=== PATIENT | female | born 1970 ===

== ENCOUNTER 2016-09-24 09:26 | Emergency (ER) | payer OTHER ==
[2016-09-24 09:35] VITALS: BP 110/48; PULSE 90; RESP 20; TEMP 98.2; O2SAT 97
[2016-09-24 10:47] LABS: RBC URINE 4 /hpf (0-3); URINE BACTERIA RARE (<OCC); URINE BILIRUBIN NEGATIVE (NEGATIVE); URINE BLOOD SMALL (NEGATIVE); URINE COLOR YELLOW (YELLOW); URINE GLUCOSE (UA) NEG (Normal); URINE KETONE TRACE mg/dL (NEGATIVE); URINE LEUKOCYTE ESTERASE NEG Leu/uL (Negative); URINE PROTEIN 30 mg/dL (NEGATIVE); URINE UROBILINOGEN 0.2-1.0 mg/dL (0.2-1.0); WBC URINE 2 /hpf (0-5)
--- NOTE | 2016-09-24 10:50 | ED PDOC ---
HPI: Back Time Seen by Provider: 09/24/16 09:47 Chief Complaint (Nursing): Back Pain Chief Complaint (Provider): Back Pain History Per: Patient History/Exam Limitations: no limitations Onset/Duration Of Symptoms: Days Current Symptoms Are (Timing): Still Present Quality Of Discomfort: "Pain" Severity: Moderate Previous Symptoms: Back Pain Associated Symptoms: None Exacerbating Factor(s): Nothing Additional Complaint(s): Patient is a 46 year old female who presents to ED for left sided back pain with radiation to the left leg for 4 days. Patient notes similar pain in the past, treated in May 2016 with Percocet. Patient denies injury or heavy lifting. Past Medical History Reviewed: Historical Data, Nursing Documentation, Vital Signs Vital Signs: Last Vital Signs Temp 98.2 F 09/24/16 09:33 Pulse 90 09/24/16 09:33 Resp 20 09/24/16 09:33 BP 110/48 L 09/24/16 09:33 Pulse Ox 97 09/24/16 09:33 - Medical History PMH: No Chronic Diseases Denies: Chronic Kidney Disease - Surgical History Surgical History: No Surg Hx - Family History Family History: States: Unknown Family Hx - Living Arrangements Living Arrangements: With Family - Home Medications Home Medications: Ambulatory Orders Medication Instructions Recorded Cyclobenzaprine [Cyclobenzaprine 10 mg PO TID PRN #15 tab 03/06/15 HCl] Naproxen [Naprosyn Tab] 500 mg PO BID PRN #20 tab 03/06/15 Docusate [Colace] 100 mg PO DAILY #15 cap 05/16/16 Methylprednisolone [Medrol Dose 4 mg PO ASDIR #21 mg 05/16/16 Pack (21 tabs)] oxyCODONE/Acetaminophen [Percocet 1 ea PO Q6 PRN #15 tab 05/16/16 5/325 mg Tab] - Allergies Allergies/Adverse Reactions: Allergies Allergy/AdvReac Type Severity Reaction Status Date / Time No Known Allergies Allergy Verified 09/24/16 09:45 Review of Systems ROS Statement: Except As Marked, All Systems Reviewed And Found Negative Respiratory: Negative for: Shortness of Breath Gastrointestinal: Negative for: Nausea, Vomiting Musculoskeletal: Positive for: Back Pain, Leg Pain. Negative for: Neck Pain Neurological: Negative for: Weakness, Numbness Physical Exam - Reviewed Nursing Documentation Reviewed: Yes Vital Signs Reviewed: Yes - Physical Exam Appears: Positive for: Non-toxic, Uncomfortable Skin: Positive for: Normal Color, Warm Eye Exam: Positive for: Normal appearance Neck: Positive for: Normal, Painless ROM Gastrointestinal/Abdominal: Positive for: Normal Exam. Negative for: Tenderness Back: Positive for: Normal Inspection, Other (left buttock tenderness (+) straight leg raise at 45 degree) Extremity: Positive for: Normal ROM Neurologic/Psych: Positive for: Alert, Oriented - ECG O2 Sat by Pulse Oximetry: 97 (RA) Pulse Ox Interpretation: Normal Medical Decision Making Medical Decision Making: Time: 1015 Initial impression: Back pain Initial plan: -- Toradol -- Valium -- Urine culture -- LS spine -- Urine culture Time: 1155 Patient reports that her leg pain continues at this time Plan: -- Flexeril -- Percocet PO Time: 1300 Patient reports significant improvement in pain at this time, feels comfortable with discharge home. Patient has Percocet and Naproxen at home, instructed to take as needed for pain and follow up with orthopedic doctor Scribe Attestation: Documented by Bryanna Reynaga acting as a scribe for Chaitanya Bergeron MD MD Scribe Attestation: All medical record entries made by the Scribe were at my direction and personally dictated by me. I have reviewed the chart and agree that the record accurately reflects my personal performance of the history, physical exam, medical decision making, and the department course for this patient. I have also personally directed, reviewed, and agree with the discharge instructions and disposition.
[2016-09-24] MEDS ORDERED: Oxycodone/Acetaminophen 5/325 mg Tab ONE (11:48)
[2016-09-24] MEDS ORDERED: Oxycodone/Acetaminophen 5/325 mg Tab PO ONE (11:53)
--- NOTE | 2016-09-24 14:26 | RAD ---
PROCEDURE: Radiographs of the Lumbar Spine. HISTORY: atraumatic back pain COMPARISON: None available. FINDINGS: BONES: Alignment appears satisfactory. Mild degenerative changes including small anterior osteophyte formation. No listhesis. No acute displaced fracture identified. DISC SPACES: Unremarkable. OTHER FINDINGS: None. IMPRESSION: Mild degenerative changes. No acute displaced fracture or subluxation identified.
== END 2016-09-24 13:29 | disposition home or self-care (01) ==
LOC: H.ER 09:26
DX: M54.30 Sciatica, unspecified side (principal)